=== PATIENT | male | born 1990 | race African-American/Black ===

== ENCOUNTER 2020-07-24 23:07 | Emergency (ER) | payer OTHER, MEDICAID ==
[~2020-07-24] VITALS: Ht 182.9 cm; Wt 100.0 kg
[2020-07-24] MEDS ORDERED: ONDANSETRON HCL 4MG/2ML INJ IV STA (23:11)
[2020-07-24] MEDS ORDERED: MORPHINE SULFATE 4 MG/ML CPJ (NOT FOR IM USE) IV STA (23:11)
[2020-07-24] MEDS ORDERED: CEFAZOLIN 1000MG PREMIX 50 ML IV ONE (23:15)
[2020-07-24] MEDS ORDERED: SODIUM CHLORIDE 0.9% 1,000 ML IV ONE ×2 (23:15)
[2020-07-24 23:48] LABS: BASOPHILS % 0.7 % (0.0-2.0); EOSINOPHILS % 4.1 % (0.0-5.0); HEMATOCRIT. 41.5 % (42.0-52.0); HEMOGLOBIN. 14.2 g/dL (14.0-18.0); LYMPHOCYTES % 23.1 % (20.0-50.0); MEAN CORPUSCULAR HEMOGLOBIN 31.8 pg (28.0-32.0); MEAN CORPUSCULAR VOLUME 92.7 fL (80.0-94.0); MEAN PLATELET VOLUME 8.2 fl (7.4-10.4); MONOCYTES % 5.3 % (2.0-8.0); NEUTROPHILS % 66.8 % (40.0-76.0); PLATELET 308 x1000/uL (130-400); RED BLOOD CELL COUNT 4.48 mill/uL (4.7-6.1); RED CELL DISTRIBUTION WIDTH 13.5 % (11.6-14.6)
[2020-07-24 23:52] LABS: CHLORIDE 107 mEq/L (98-107)
[2020-07-25] MEDS ORDERED: MORPHINE SULFATE 4 MG/ML CPJ (NOT FOR IM USE) IV ONE ×2 (00:15→03:15)
[2020-07-25] MEDS ORDERED: IOHEXOL-350 100 ML BOTTLE ONE (02:23)
[2020-07-25 03:21] VITALS: BP 167/112
== END 2020-07-25 04:13 | disposition short-term general hospital (02) ==
LOC: ER 23:07
DX: S82.002A Unspecified fracture of left patella, initial encounter for closed fracture (principal); W34.00XA Accidental discharge from unspecified firearms or gun, initial encounter; Y93.89 Activity, other specified; Y92.89 Other specified places as the place of occurrence of the external cause; Y99.8 Other external cause status
CPT/HCPCS: 36415; 71045; 72170; 73552; 73562; 73590; 73706; 80053; 85025; 86850; 86900; 86901; 96365; 96375; 96376; 99285; J0690; J2270; J2405; J7030; L1830; Q9967; 96361